=== PATIENT | female | born 1950 | race African-American/Black ===

== ENCOUNTER 2022-01-07 14:02 | Inpatient (IN) | payer MEDICAID, MEDICARE, OTHER ==
[~2022-01-07] VITALS: Ht 162.6 cm; Wt 57.3 kg
[~2022-01-07 14:02] MED LIST: ACET-2708 MT
[2022-01-07 15:22] LABS: BASOPHILS % 0.8 % (0.0-2.0); EOSINOPHILS % 1.4 % (0.0-5.0); HEMATOCRIT. 40.4 % (36.0-48.0); HEMOGLOBIN. 14.5 g/dL (12.0-16.0); LYMPHOCYTES % 37.6 % (20.0-50.0); MEAN CORPUSCULAR HEMOGLOBIN 34.7 pg (28.0-32.0); MEAN CORPUSCULAR VOLUME 97.1 fL (81.0-99.0); MEAN PLATELET VOLUME 10.7 fl (7.4-10.4); MONOCYTES % 8.9 % (2.0-8.0); NEUTROPHILS % 51.3 % (40.0-76.0); PLATELET 152 x1000/uL (130-400); RED BLOOD CELL COUNT 4.16 mill/uL (4.2-5.4)
[2022-01-07 15:27] LABS: CLARITY URINE CLEAR (CLEAR); COLOR URINE YELLOW (YELLOW); KETONES URINE NEGATIVE (NEGATIVE); LEUKOCYTE ESTERASE URINE NEGATIVE (NEGATIVE); NITRITE URINE NEGATIVE (NEGATIVE); OCCULT BLOOD URINE TRACE (NEGATIVE); PH URINE 7.5 (4.5-8.0); PROTEIN URINE NEGATIVE (NEGATIVE); SPECIFIC GRAVITY URINE 1.011 (1.005-1.030); UROBILINOGEN URINE 0.2 E.U./dL (0.2-1.0)
[2022-01-07 15:44] LABS: CHLORIDE 111 mEq/L (98-107)
[2022-01-07 15:53] LABS: ETHANOL BLOOD < 10 mg/dL
[2022-01-07 16:01] LABS: *AMPHETAMINES SCREEN URINE NEGATIVE (NEGATIVE); *BARBITURATES SCREEN URINE NEGATIVE (NEGATIVE); *BENZODIAZEPINES SCREEN URINE NEGATIVE (NEGATIVE); *COCAINE SCREEN URINE NEGATIVE (NEGATIVE); CANNABINOID URINE SCREEN NEGATIVE (NEGATIVE); METHADONE URINE SCREEN NEGATIVE (NEGATIVE); OPIATES URINE SCREEN NEGATIVE (NEGATIVE); PHENCYCLIDINE URINE SCREEN NEGATIVE (NEGATIVE)
[2022-01-07] MEDS ORDERED: DIPHENHYDRAMINE 50MG/ML VIAL IV PRN (19:15)
[2022-01-07] MEDS ORDERED: ZOLPIDEM TARTRATE 5MG TABLET PO PRN (19:15)
[2022-01-07] MEDS ORDERED: ONDANSETRON HCL 4MG/2ML INJ IV PRN (19:15)
[2022-01-07] MEDS ORDERED: CLONIDINE 0.1MG TABLET PO PRN (19:15)
[2022-01-07] MEDS ORDERED: MAGNESIUM/ALUMINUM HYDROXIDE/SIMETHICONE 30ML UDC PO PRN (19:15)
[2022-01-07] MEDS ORDERED: ACETAMINOPHEN 325MG TABLET PO PRN ×2 (19:15)
[2022-01-07 23:00] VITALS: BP 99/59
[2022-01-08] VITALS: BP 148/66
[2022-01-08 04:00] VITALS: BP 135/60
[2022-01-08] MEDS: AMLODIPINE 2.5MG TABLET PO SCH ×3 (05:57→20:59)
[2022-01-08] MEDS: SODIUM CHLORIDE 0.9% INJ 3ML FLUSH IVF SCH ×4 (05:57→21:00)
[2022-01-08 08:00] VITALS: BP 138/85
[2022-01-08 11:48] VITALS: BP 120/85
[2022-01-08] MEDS ORDERED: POTASSIUM CHLORIDE 20MEQ TABLET SR PO NR (13:00)
[2022-01-08 15:42] VITALS: BP 128/73
[2022-01-08 20:00] VITALS: BP 137/90
[2022-01-08] MEDS: METOPROLOL TARTRATE 25MG TABLET PO SCH (20:58)
[2022-01-09] VITALS: BP 125/69
[2022-01-09 04:00] VITALS: BP 115/62
[2022-01-09 06:20] LABS: CHLORIDE 109 mEq/L (98-107)
[2022-01-09] MEDS: SODIUM CHLORIDE 0.9% INJ 3ML FLUSH IVF SCH ×2 (06:42→13:08)
[2022-01-09 08:01] VITALS: BP 139/78
[2022-01-09] MEDS: METOPROLOL TARTRATE 25MG TABLET PO SCH (08:08)
[2022-01-09] MEDS: AMLODIPINE 2.5MG TABLET PO SCH (08:08)
[2022-01-09 12:00] VITALS: BP 126/63
[2022-01-09] MEDS ORDERED: POTASSIUM CHLORIDE 10MEQ TABLET SR PO SCH (12:30)
[2022-01-09] MEDS ORDERED: LISINOPRIL 5MG TABLET PO SCH (12:30)
[2022-01-09 15:28] VITALS: BP 121/60
[2022-01-09 15:45] VITALS: BP 121/60
== END 2022-01-09 17:07 | disposition home or self-care (01) | DRG 281 ==
LOC: ER 14:29 → 8WST 18:27 → ENRESERV 19:57 → 8WST 23:58
PROVIDERS: ADMIT Internal Medicine; ATTEND Internal Medicine
DX: I21.4 Non-ST elevation (NSTEMI) myocardial infarction (principal); I42.9 Cardiomyopathy, unspecified; I50.22 Chronic systolic (congestive) heart failure; Z20.822 Contact with and (suspected) exposure to COVID-19; I11.0 Hypertensive heart disease with heart failure; Z87.891 Personal history of nicotine dependence; Z79.899 Other long term (current) drug therapy; Z98.1 Arthrodesis status; Z88.0 Allergy status to penicillin
CPT/HCPCS: 36415; 71045; 80048; 80053; 80305; 80320; 81003; 83735; 84484; 85025; 87426; 93005; 93306; 99285; G0480